=== PATIENT | female | born 1955 | race American Indian/Alaskan Native ===

== ENCOUNTER 2020-02-11 12:04 | Outpatient (CLI) | payer MEDICARE ==
[2020-02-11 12:58] LABS: Hemoglobin 13.9 gm/dl (10.1-14.3); Mean Corpuscular HGB Conc 34 % (30-34); Mean Corpuscular Volume 86 fl (79-97); Platelet Count 245 K/mm3 (140-440); Red Blood Count 4.76 M/mm3 (3.65-5.03); Red Cell Distribution Width 14.3 % (13.2-15.2)
[2020-02-11 13:16] LABS: Erythrocyte Sedimentation Rate 33 mm/Hr (0-20)
[2020-02-11 13:20] LABS: Alanine Aminotransferase 12 units/L (7-56); Albumin 4.4 g/dL (3.9-5); Blood Urea Nitrogen 12 mg/dL (7-17); Calcium 9.7 mg/dL (8.4-10.2); Hemolysis Index 2
[2020-02-11 13:39] LABS: BUN/Creatinine Ratio 24
[2020-02-14 13:00] LABS: Vitamin D, 25-OH, D2 <4 ng/mL
[2020-02-18 14:22] LABS: HIV-1 Antibody Differentiation SEE SCANNED RESULT; HIV-2 Antibody Differentiation SEE SCANNED RESULT
== END 2020-02-11 12:05 | disposition home or self-care (01) ==
LOC: LAB 12:04
PROVIDERS: ATTEND Specialist
DX: G62.9 Polyneuropathy, unspecified (principal); G63 Polyneuropathy in diseases classified elsewhere; E07.9 Disorder of thyroid, unspecified; G93.41 Metabolic encephalopathy
CPT/HCPCS: 36415; 80053; 82306; 82607; 83921; 84443; 85027; 85652; 86592; 86689